=== PATIENT | female | born 1990 | race African-American/Black ===

== ENCOUNTER → 2016-11-04 | Outpatient (CLI) | payer OTHER ==
--- NOTE | 2016-11-04 15:46 | RAD ---
Indication assess size and dates. Obstetrical ultrasound examination was performed. No prior imaging is available. There is a single, viable, IUP. Biparietal diameter of 4.6 cm, head circumference of 17.7 cm, abdominal circumference of 14.7 cm and femoral length of 3.5 cm are compatible with a gestational age of approximately 20 weeks 2 days. By sonographic analysis the expected date of confinement is 03/22/2017. The estimated weight is approximately 350 g. The amount of amniotic fluid appears normal. The placenta is predominantly anterior. A heart rate of 135 was documented. There is a 4 chambered heart. There was a three-vessel cord. The bladder, kidneys visualized spine, head appeared normal. The current presentation is transverse. No definite anomalies were seen. The maternal cervix length of 5.1 cm is unremarkable. IMPRESSION: Single viable intrauterine fetus of approximately 20 weeks 2 days gestation.
== END | disposition home or self-care (01) ==
LOC: US 13:22
PROVIDERS: ATTEND Obstetrics & Gynecology
DX: O26.841 Uterine size-date discrepancy, first trimester (principal)
CPT/HCPCS: 76805

== ENCOUNTER 2017-01-10 13:04 | Observation (INO) | payer OTHER | END 2017-01-10 15:00 | disposition home or self-care (01) | LOC: 3 SO LND 13:04 | PROVIDERS: ADMIT Obstetrics & Gynecology; ATTEND Obstetrics & Gynecology | DX: O62.9 Abnormality of forces of labor, unspecified (principal); Z3A.30 30 weeks gestation of pregnancy | CPT/HCPCS: G0378; G0379 ==

== ENCOUNTER 2017-02-04 15:57 | Observation (INO) | payer OTHER ==
[2017-02-04] MEDS ORDERED: IV RINGERS,LACTATED 1000ML 1,000 ML IV SCH (17:01)
[2017-02-04 17:13] LABS: BILIRUBIN,URINE NEGATIVE (NEG); GLUCOSE,URINE NEGATIVE (NEG); NITRITE,URINE NEGATIVE (NEG); PH,URINE 6.5; PROTEIN,URINE NEGATIVE (NEG-TRACE)
[2017-02-04 17:46] LABS: BACTERIA,URINE FEW /HPF (0-FEW); RBC,URINE 0 /HPF (0-2); SQUAMOUS EPITHELIAL CELL,UR FEW /LPF; WBC,URINE OCC /HPF (0-4)
== END 2017-02-04 18:15 | disposition home or self-care (01) ==
LOC: 3 SO LND 15:57
PROVIDERS: ADMIT Obstetrics & Gynecology; ATTEND Obstetrics & Gynecology
DX: O26.893 Other specified pregnancy related conditions, third trimester (principal); R10.9 Unspecified abdominal pain; R51 Headache; Z3A.33 33 weeks gestation of pregnancy
CPT/HCPCS: 81001; G0378; G0379

== ENCOUNTER 2017-02-22 14:23 | Observation (INO) | payer OTHER ==
[2017-02-22 15:30] LABS: BILIRUBIN,URINE NEGATIVE (NEG); GLUCOSE,URINE NEGATIVE (NEG); NITRITE,URINE NEGATIVE (NEG); PROTEIN,URINE NEGATIVE (NEG-TRACE)
[2017-02-22] MEDS ORDERED: IV RINGERS,LACTATED 1000ML 1,000 ML IV SCH (16:00)
[2017-02-22 16:07] LABS: RBC,URINE 0 /HPF (0-2); WBC,URINE OCC /HPF (0-4)
[2017-02-22 16:08] LABS: BACTERIA,URINE FEW /HPF (0-FEW); SQUAMOUS EPITHELIAL CELL,UR FEW /LPF
[2017-02-22] MEDS ORDERED: BUTALB/APAP/CAFEIN 50/325/40MG TABLET. PO PRN ×2 (16:15→20:15)
[2017-02-22] MEDS ORDERED: diphenhydrAMINE HCL 25 MG CAPSULE PO ONE (22:30)
== END 2017-02-23 09:35 | disposition home or self-care (01) ==
LOC: 3 SO LND 14:23
PROVIDERS: ADMIT Obstetrics & Gynecology; ATTEND Obstetrics & Gynecology
DX: O26.893 Other specified pregnancy related conditions, third trimester (principal); R51 Headache; R10.2 Pelvic and perineal pain; Z3A.36 36 weeks gestation of pregnancy
CPT/HCPCS: 81001; 87086; 96360; 96361; G0378; G0379; Q0163; J7120

== ENCOUNTER 2017-02-25 11:21 | Observation (INO) | payer OTHER ==
[2017-02-25] MEDS ORDERED: IV RINGERS,LACTATED 1000ML 1,000 ML IV SCH (12:01)
[2017-02-25] MEDS ORDERED: ALBUTEROL SULFATE 2.5 MG/3 ML NEBU. NEB ONE (12:15)
[2017-02-25 12:44] LABS: HEMOGLOBIN 12.3 g/dL (12.0-15.5); RED BLOOD COUNT 5.02 x10^6/uL (3.50-5.40); RED CELL DISTRIBUTION WIDTH 15.3 % (11.5-14.5); WHITE BLOOD COUNT 9.4 x10^3/uL (4.0-11.0)
[2017-02-25 12:55] LABS: CALCIUM 9.2 mg/dL (8.5-10.1); CREATININE 0.9 mg/dL (0.6-1.0); GFR 90.2; POTASSIUM 3.6 mmol/L (3.5-5.1)
[2017-02-25 13:01] LABS: ALBUMIN 3.3 g/dL (3.4-5.0); ALBUMIN/GLOBULIN RATIO 0.7 (1.0-1.7); TOTAL BILIRUBIN 0.5 mg/dL (0.2-1.0); TOTAL PROTEIN 7.8 g/dL (6.4-8.2)
[2017-02-25 13:10] LABS: BILIRUBIN,URINE NEGATIVE (NEG); GLUCOSE,URINE NEGATIVE (NEG); NITRITE,URINE NEGATIVE (NEG); PROTEIN,URINE NEGATIVE (NEG-TRACE); UROBILINOGEN,URINE 0.2 mg/dL (0.2 mg/dL)
[2017-02-25 13:39] LABS: BACTERIA,URINE FEW /HPF (0-FEW); RBC,URINE 0 /HPF (0-2); SQUAMOUS EPITHELIAL CELL,UR MOD /LPF
== END 2017-02-25 14:50 | disposition home or self-care (01) ==
LOC: 3 SO LND 11:21
PROVIDERS: ADMIT Obstetrics & Gynecology; ATTEND Obstetrics & Gynecology
DX: O26.893 Other specified pregnancy related conditions, third trimester (principal); Z3A.36 36 weeks gestation of pregnancy
CPT/HCPCS: 36415; 80053; 81001; 82150; 83690; 85027; 87086; 94250; 94640; 94760; G0378; G0379; J7613

== ENCOUNTER 2017-02-28 17:50 | Observation (INO) | payer OTHER ==
[2017-02-28] MEDS ORDERED: BUTALB/APAP/CAFEIN 50/325/40MG TABLET. PO PRN (21:45)
--- NOTE | 2017-02-28 23:10 | RAD ---
Limited OB ultrasound greater than 14 weeks 02/28/2017 CLINICAL HISTORY: Third trimester with premature contractions and pelvic pain. Question spontaneous rupture of membranes. TECHNIQUE: A real-time ultrasound examination of the gravid uterus was performed. Multiple images were obtained. FINDINGS: There is a single living IUP. The fetus is in a cephalic position. cardiac and somatic activity is seen. The heart rate is 127 bpm. The maternal cervix is closed. It measures 4.6 cm in length. The placenta is anterior. The amniotic fluid volume is within normal limits. The THERESA measures 11.6 cm. The following measurements were obtained: BPD 8.97 cm 36 weeks 2 days HC 33.13 cm 37 weeks 5 days AC 33.99 cm 36 weeks 6 days FL 7.33 cm 37 weeks 4 days The estimated gestational age by ultrasound is 37 weeks 3 days plus or minus a standard deviation of 3 weeks. The estimated date of delivery by ultrasound is 03/18/2017. The estimated weight is 3255 g +/- 482 g (7 lbs. 3 oz.) Detailed evaluation of anatomy was not performed. No obvious abnormality is seen. The maternal ovaries are not visualized. No free fluid is seen. IMPRESSION: Single living IUP with estimated gestational age by ultrasound of 37 weeks 3 days plus or minus a standard deviation of 3 weeks. Electronically signed by: Cristopher Mccullough MD (02/28/2017 11:07 PM) [facility]
== END 2017-02-28 23:10 | disposition home or self-care (01) ==
LOC: INTOOBSV 17:50 → 3 SO LND 17:50
PROVIDERS: ADMIT Obstetrics & Gynecology; ATTEND Obstetrics & Gynecology
DX: O62.9 Abnormality of forces of labor, unspecified (principal); O26.893 Other specified pregnancy related conditions, third trimester; R10.2 Pelvic and perineal pain; Z3A.37 37 weeks gestation of pregnancy
CPT/HCPCS: 76815; G0378; G0379

== ENCOUNTER 2017-03-03 16:40 | Observation (INO) | payer OTHER ==
[2017-03-03 16:54] VITALS: BP 121/79
--- NOTE | 2017-03-03 17:16 | PHYS DOC ---
Past Medical History Past Medical History: Asthma Past Surgical History: Cholecystectomy Alcohol Use: None Drug Use: None Adult General Chief Complaint Chief Complaint: CHEST PAIN HPI HPI Patient is a 27 year old female who is 4 para 2, 38 weeks by ultrasound, Dr. Flores is her customer acquisition specialist, presents here today secondary to uterine contractions and chest pain. Patient reports that earlier today she felt to be contractions her abdomen and she reports that she started feeling shaky. She reports shortly thereafter she started having some chest pain. Pain was in the midsternal area. Patient no shortness of breath with it. Patient reports tingling to both hands when this occurred. Patient has any diaphoresis. Patient has a nausea vomiting diarrhea. Patient has a dysuria frequency or urgency. Patient has any fevers shakes chills. Patient has any cough. She reports she has a history of asthma and GERD. Patient has any hypertension diabetes liver lung or kidney problems otherwise. Patient has any history of PEs or complication of the prior pregnancies. Patient reports she is a 4 para 2. Patient reports she had similar symptoms approximately 2 weeks ago when she was up in the [place] she reports that it was attributed to panic attack. Patient reports that she did not feel anxious when the symptoms occurred earlier today though. Patient denies any vaginal bleeding or breaking of water. Patient reports the contractions are intermittent. Patient reports decreased kicking earlier today. Patient's ER physical exam is significant for a gravid abdomen. Patient's heart was regular rate and rhythm. Lungs were clear. No wheezing rales or rhonchi. No calf tenderness. No Homans sign. Patient is nontoxic appearing and in no respiratory distress. Review of systems: Constitutional: Denies fever or chills Eyes: Denies change in visual acuity, redness, or eye pain HENT: Denies nasal congestion or sore throat All other review systems are negative except as documented in the history of present illness portion. Physical exam: Constitutional: Well developed, well nourished, no acute distress, non-toxic appearance. HENT: Normocephalic, atraumatic, bilateral external ears normal, oropharynx moist, no oral exudates, nose normal. Eyes: EOMI, conjunctiva normal, no discharge. Neck: Normal range of motion, no tenderness, supple, no stridor. Cardiovascular:Heart rate regular rhythm Lungs & Thorax: No respiratory distress Abdomen: Bowel sounds normal, soft, gravid, see above, no pulsatile masses. Skin: Warm, dry, no erythema, no rash. Back: No tenderness, no CVA tenderness. Extremities: No tenderness, no cyanosis, no clubbing, ROM intact, no edema. Neurologic: Alert and oriented X 3, normal motor function, normal sensory function, no focal deficits noted. Psychologic: Affect normal, judgement normal, mood normal. EKG: Normal sinus rhythm at a heart rate of 93. Nonspecific ST-T wave abnormalities. No evidence of ST elevation SC. Interpreted by ER physician. Assessment and plan This is a 27-year-old female who is 4 para 2 who presents to the ER today secondary to uterine contractions, decreased activity, and chest pain that occurred earlier today. Patient is clinically hemodynamically stable. Patient's chest pain is atypical for cardiac etiology. I have very low suspicion that the pain is secondary to any acute pathology that warrant any further evaluation the hospital or ER. I do not believe the patient has pulmonary embolism, pneumothorax, myocardial infarction, pneumonia. Patient's clinically hemodynamically stable. Patient be medically cleared from the ED and will be sent to labor and delivery for further monitoring and OB evaluation. Allergies Allergies Allergies Coded Allergies Type Severity Reaction Last Updated Verified shrimp Allergy Intermediate Swelling 02/04/17 Yes Current Patient Data Vital Signs Vital Signs Date Time Temp Pulse Resp B/P (MAP) Pulse Ox O2 Delivery O2 Flow Rate FiO2 03/03/17 16:54 99.0 93 18 121/79 (93) 99 Room Air 99.0 EKG EKG [] Radiology/Procedures Radiology/Procedures [] Course & Med Decision Making Course & Med Decision Making Pertinent Labs and Imaging studies reviewed. (See chart for details) [] Dragon Disclaimer Dragon Disclaimer This electronic medical record was generated, in whole or in part, using a voice recognition dictation system. Departure Departure Impression: Primary Impression: Nonspecific chest pain Additional Impression: Uterine contractions at greater than 20 weeks of gestation Disposition: 05 TRANSFER OTHER (transfer to labor and delivery. Dr. Mtz made aware by CONVERTIBLE SOFA BEDSPRING TESTER) Admitting Physician: Other (Dr. Mtz) Condition: STABLE Referrals: NO PCP (PCP) Problem Qualifiers JINNY MAURO MD Mar 03, 2017 17:16
--- NOTE | 2017-03-04 06:14 | EKG ---
[facility] [address] [place] [address] Test Date: 2017-03-03 Test Time: 16:49:53 Pat Name: TIKA NGO Department: Room: [facility] Gender: F Wan Support Specialist: : 1990 Requested By: CIPRIANO BARRAGAN Order Number: [id number] Reading MD: Jewels Aguilar Measurements Intervals [place] Rate: 93 P: 50 WV: 158 QRS: 44 QRSD: 80 T: 42 QT: 326 QTc: 408 Interpretive Statements SINUS RHYTHM NORMAL EKG Electronically Signed On 03-05-2017 16:09:13 CDT by Jewels Aguilar
== END 2017-03-03 19:23 | disposition home or self-care (01) ==
LOC: ER 16:40 → 3 SO LND 17:14
PROVIDERS: ADMIT Obstetrics & Gynecology; ATTEND Obstetrics & Gynecology
DX: O62.9 Abnormality of forces of labor, unspecified (principal); O26.893 Other specified pregnancy related conditions, third trimester; R07.2 Precordial pain; O21.2 Late vomiting of pregnancy; R19.7 Diarrhea, unspecified; R30.0 Dysuria; R35.0 Frequency of micturition; R39.15 Urgency of urination; O99.513 Diseases of the respiratory system complicating pregnancy, third trimester; J45.909 Unspecified asthma, uncomplicated; O99.613 Diseases of the digestive system complicating pregnancy, third trimester; K21.9 Gastro-esophageal reflux disease without esophagitis; O10.913 Unspecified pre-existing hypertension complicating pregnancy, third trimester; O24.313 Unspecified pre-existing diabetes mellitus in pregnancy, third trimester; E11.9 Type 2 diabetes mellitus without complications; O36.8130 Decreased fetal movements, third trimester, not applicable or unspecified; Z3A.38 38 weeks gestation of pregnancy
CPT/HCPCS: 93005; 99285; G0378; G0379

== ENCOUNTER 2017-03-13 19:18 | Inpatient (IN) | payer OTHER ==
[~2017-03-13] VITALS: Ht 185.4 cm; Wt 91.2 kg
[2017-03-13] MEDS ORDERED: DINOPROSTONE 10 MG SUPP.VAG VG ONE (19:30)
[2017-03-13] MEDS ORDERED: LIDOCAINE 1% PF 30 ML VIAL. INJ PRN (19:30)
[2017-03-13] MEDS ORDERED: CITRIC ACID/SODIUM CITRATE 30 ML SOLUTION. PO PRN (19:30)
[2017-03-13] MEDS ORDERED: 0.9 % SODIUM CHLORIDE 10 ML DISP.SYRIN. IV PRN (19:30)
[2017-03-13] MEDS ORDERED: fentaNYL PF VIAL 100 MCG/2 ML VIAL IV PRN (19:30)
[2017-03-13] MEDS ORDERED: OXYTOCIN 30 UNIT/500 ML PREMIX 500 ML IV PRN ×2 (19:30)
[2017-03-13] MEDS ORDERED: TERBUTALINE 1 MG/ML VIAL. SQ PRN (19:30)
[2017-03-13] MEDS ORDERED: BUTORPHANOL 2 MG/ML VIAL. IV PRN (19:30)
[2017-03-13] MEDS ORDERED: PREN1TAB58 PO (19:47)
[2017-03-13] MEDS ORDERED: RANI150T6 PO (19:57)
[2017-03-13 20:02] LABS: BILIRUBIN,URINE NEGATIVE (NEG); GLUCOSE,URINE NEGATIVE (NEG); NITRITE,URINE NEGATIVE (NEG); PH,URINE 6.5; PROTEIN,URINE NEGATIVE (NEG-TRACE); UROBILINOGEN,URINE 0.2 mg/dL (0.2 mg/dL)
[2017-03-13 20:06] LABS: HEMATOCRIT 32.5 % (36.0-47.0); HEMOGLOBIN 10.9 g/dL (12.0-15.5); RED BLOOD COUNT 4.64 x10^6/uL (3.50-5.40); RED CELL DISTRIBUTION WIDTH 15.2 % (11.5-14.5); WHITE BLOOD COUNT 10.1 x10^3/uL (4.0-11.0)
[2017-03-13] MEDS: IV RINGERS,LACTATED 1000ML 1,000 ML IV SCH (20:07)
[2017-03-13 20:08] LABS: BARBITURATES NEG (NEG); BENZODIAZEPINES NEG (NEG); CANNABINOIDS NEG (NEG); COCAINE NEG (NEG); METHADONE NEG (NEG); OPIATES NEG (NEG); PHENCYCLIDINE NEG (NEG)
[2017-03-13 20:11] LABS: BACTERIA,URINE FEW /HPF (0-FEW); RBC,URINE 0 /HPF (0-2); SQUAMOUS EPITHELIAL CELL,UR FEW /LPF; WBC,URINE OCC /HPF (0-4)
[2017-03-13] MEDS ORDERED: diphenhydrAMINE HCL 25 MG CAPSULE PO PRN (20:15)
[2017-03-14] MEDS ORDERED: OXYTOCIN in NORMAL SALINE PREMIX 30 UNIT/500 ML BAG. IV ONE (03:02)
[2017-03-14] MEDS ORDERED: PENICILLIN G K 5,000,000 UNIT in IV NORMAL SALINE 100ML 100 ML IV ONE (06:00)
[2017-03-14] MEDS ORDERED: L&D EPIDURAL CASSETTE 100 ML PUMP.RESVR. EP ONE (06:00)
[2017-03-14] MEDS: PENICILLIN G K 2,500,000 UNIT in IV NORMAL SALINE 50ML 50 ML IV SCH ×2 (06:05→10:08)
[2017-03-14] MEDS: IV RINGERS,LACTATED 1000ML 1,000 ML IV SCH (06:10)
--- NOTE | 2017-03-14 08:12 | PDOC1 ---
OB - History Hx of Present Care: Good Care Ultrasounds: Normal mid trimester US Obstetrical Complications: None Medical Complications: None Past Family/Social History * Past Medical, Surgical, Family and Obstetric Histories reviewed from chart. Rubella: Immune RPR/VDRL: Negative GBS Status: Negative HBsAG: Negative OB - Chief Complaint & HPI Date of Admission: Date of Admission: Mar 13, 2017 at 19:18 Chief Complaint/History : 3 Para: 2 EGA: 39 Reason for admission: induction of labor Indication for induction: maternal discomfort Admission Nurse Assessment Rev: Yes Problems: OB - Admission Exam Physical Exam Vitals: VS - Last 72 Hours, by Label Date Time Temp Pulse Resp B/P (MAP) Pulse Ox O2 Delivery O2 Flow Rate FiO2 03/14/17 01:16 22 Room Air HEENT: Normal Heart: Regular Rate Lungs: Clear Abdomen: Gravid, Non tender, Soft Extremities: Edema Reflexes: Normal Cervical Dilatation: 2cm Effacement: 50% Station: -3 Membranes: Intact Heart Rate: Normal Accelerations: Accelerations Present Decelerations: No decelerations Contractions on Admission: None Text A: 39 wks IUP IOL secondary discomforts of P: Admit for IOL cervidil, then pitocin in am. CIPRIANO BARRAGAN Jr, MD Mar 14, 2017 08:12
[2017-03-14] MEDS ORDERED: L&D EPIDURAL CASSETTE 100 ML EP ONE (09:07)
[2017-03-14] MEDS ORDERED: LIDOCAINE 2% PF Vial for OR 5 ML VIAL. ONE (09:07)
--- NOTE | 2017-03-14 10:29 | PDOC ---
VAGINAL DELIVERY DATE DATE: 03/14/17 TIME: 10:28 : 4 Para: 3 EGA: 39 VAGINAL DELIVERY: VTX VACCUM ASSISTED: No PLACENTA: Spontaneous 03/26 SEX: Female WEIGHT Weight [ 3485 gm] Nuchal Cord: No Amniotic Fluid: Clear PAIN: Epidural EPISIOTOMY: No EXTENSION: No EBL 300 ml COMPLICATIONS none CONDITION pt. stable Signs of Intrauterine Infectio: None Shoulder Dystocia: No Problems: CIPRIANO BARRAGAN Jr, MD Mar 14, 2017 10:29
[2017-03-14] MEDS ORDERED: 0.9 % SODIUM CHLORIDE 10 ML DISP.SYRIN. IV PRN (10:30)
[2017-03-14] MEDS ORDERED: PHENYLEPH/MINERAL OIL/PETROLAT RECTAL OINTMENT 28GM TUBE. RC PRN (10:30)
[2017-03-14] MEDS ORDERED: OXYTOCIN 30 UNIT/500 ML PREMIX 500 ML IV PRN (10:30)
[2017-03-14] MEDS ORDERED: BENZOCAINE 20% TOPICAL AEROSOL SPRAY 57GM CAN. TP PRN (10:30)
[2017-03-14] MEDS ORDERED: ZOLPIDEM 5 MG TABLET. PO PRN (10:30)
[2017-03-14] MEDS ORDERED: HYDROCORTISONE 1% TOPICAL OINTMENT 30GM TUBE. TP PRN (10:30)
[2017-03-14] MEDS ORDERED: MAG HYDROX/ALUMINUM HYD/SIMETH 30 ML ORAL.SUSP PO PRN (10:30)
[2017-03-14] MEDS ORDERED: IBUPROFEN 800 MG TABLET. PO PRN (10:30)
[2017-03-14] MEDS ORDERED: MAGNESIUM HYDROXIDE 2,400 MG/30 ML ORAL.SUSP. PO PRN (10:30)
[2017-03-14] MEDS ORDERED: ACETAMINOPHEN 325 MG TABLET. PO PRN (10:30)
[2017-03-14] MEDS ORDERED: diphenhydrAMINE HCL 25 MG CAPSULE PO PRN (10:30)
[2017-03-14] MEDS ORDERED: SIMETHICONE 80 MG TAB.CHEW PO PRN (10:30)
[2017-03-14] MEDS ORDERED: DOCUSATE SODIUM 100 MG CAPSULE. PO PRN (10:30)
[2017-03-14] MEDS ORDERED: MMR per PROTOCOL. MC PRN (10:30)
[2017-03-14] MEDS: IBUPROFEN 800 MG TABLET. PO PRN ×2 (12:13→20:22)
[2017-03-14 12:45] VITALS: BP 126/76
[2017-03-14 13:15] VITALS: BP 120/84
[2017-03-14 14:15] VITALS: BP 114/79
[2017-03-14] MEDS: oxyCODONE/APAP 5/325 1 TAB TABLET PO PRN ×3 (15:16→20:22)
[2017-03-14 18:05] VITALS: BP 117/74
[2017-03-14 23:13] VITALS: BP 118/75
[2017-03-15 04:57] VITALS: BP 105/61
[2017-03-15 08:17] LABS: RPR REFLEX Non Reactive (Non Reactive)
--- NOTE | 2017-03-15 08:24 | PDOC ---
OB Progress Note Date of Service 03/15/17 Time of Evaluation 0820 Notes Pt. feeling well. Pain controlled. Lochia minimal. Bottle feeding. Lab Laboratory Tests Test 03/13/17 19:00 03/13/17 19:50 Urine Collection Type Unknown Urine Color Yellow Urine Clarity Clear Urine pH 6.5 Urine Specific [place] <=1.005 Urine Protein Negative mg/dL (NEG-TRACE) Urine Glucose (UA) Negative mg/dL (NEG) Urine Ketones (Stick) Negative mg/dL (NEG) Urine Blood Negative (NEG) Urine Nitrite Negative (NEG) Urine Bilirubin Negative (NEG) Urine Urobilinogen Dipstick 0.2 mg/dL (0.2 mg/dL) Urine Leukocyte Esterase Negative (NEG) Urine RBC 0 /HPF (0-2) Urine WBC Occ /HPF (0-4) Urine Squamous Epithelial Cells Few /LPF Urine Bacteria Few /HPF (0-FEW) Urine Opiates Screen Neg (NEG) Urine Methadone Screen Neg (NEG) Urine Barbiturates Neg (NEG) Urine Phencyclidine Screen Neg (NEG) Urine Amphetamine/Methamphetamine Neg (NEG) Urine Benzodiazepines Screen Neg (NEG) Urine Cocaine Screen Neg (NEG) Urine Cannabinoids Screen Neg (NEG) Urine Ethyl Alcohol Neg (NEG) White Blood Count 10.1 x10^3/uL (4.0-11.0) Red Blood Count 4.64 x10^6/uL (3.50-5.40) Hemoglobin 10.9 g/dL (12.0-15.5) Hematocrit 32.5 % (36.0-47.0) Mean Corpuscular Volume 70 fL (79-100) Mean Corpuscular Hemoglobin 24 pg (25-35) Mean Corpuscular Hemoglobin Concent 34 g/dL (31-37) Red Cell Distribution Width 15.2 % (11.5-14.5) Platelet Count 195 x10^3/uL (140-400) RPR Titer Additional Testing Non reactive (Non Reactive) Medications Current Medications Sodium Chloride (Normal Saline Flush) 3 ml QSHIFT PRN IV AFTER MEDS AND BLOOD DRAWS; Start 03/13/17 at 19:30 Ringer's Solution 1,000 ml @ 125 mls/hr Q8H IV Last administered on 03/14/17t 06:10; Start 03/13/17 at 19:22; Stop 03/14/17 at 13:50; Status DC Butorphanol Tartrate (Stadol) 2 mg PRN Q1HR PRN IV Severe labor pain Last administered on 03/14/17 01:16; Start 03/13/17 at 19:30; Stop 03/14/17 at 13:50 ; Status DC Fentanyl Citrate (Fentanyl 2ml Vial) 100 mcg PRN Q30MIN PRN IV Severe pain; Start 03/13/17 at 19:30 Citric Acid/ Sodium Citrate (Bicitra) 30 ml 1X PRN PRN PO DYSPEPSIA Last administered on 03/13/17 20:48; Start 03/13/17 at 19:30; Stop 03/14/17 at 13:50 ; Status DC Terbutaline Sulfate (Brethine) 0.25 mg 1X PRN PRN SQ SEE COMMENTS; Start at 19:30; Stop 03/14/17 at 19:29; Status DC Lidocaine HCl 30 ml 1X PRN PRN INJ SEE COMMENTS; Start 03/13/17 at 19:30; Stop 03/15/17 at 19:29 Oxytocin/Sodium Chloride 500 ml @ 0 mls/hr CONT PRN IV SEE I/O RECORD Last administered on 03/14/17 06:06; Start 03/13/17 at 19:30; Stop 03/14/17 at 13:50 ; Status DC Oxytocin/Sodium Chloride 500 ml @ 0 mls/hr CONT PRN PRN IV Post delivery bleeding; Start 03/13/17 at 19:30; Stop 03/14/17 at 13:50; Status DC Ibuprofen (Motrin) 800 mg PRN Q6HRS PRN PO PAIN Last administered on 03/14/17 20:22; Start 03/13/17 at 19:30 Dinoprostone (Cervidil) 10 mg 1X ONCE VG Last administered on 03/13/17 19:30 ; Start 03/13/17 at 19:30; Stop 03/14/17 at 13:50; Status DC Penicillin G Potassium [id number] unit/Sodium Chloride 100 ml @ 100 mls/hr 1X ONCE IV Last administered on 03/14/17 01:15; Start 03/14/17 at 06:00; Stop at 13:50; Status DC Penicillin G Potassium [id number] unit/Sodium Chloride 50 ml @ 100 mls/hr Q4H IV Last administered on 03/14/17t 10:08; Start 03/14/17 at 06:00; Stop 03/14/17 at 13:50; Status DC Diphenhydramine HCl (Benadryl) 50 mg PRN QHS PRN PO INSOMNIA Last administered on 03/13/17 21:21; Start 03/13/17 at 20:15 Lidocaine HCl (Lidocaine Pf 2% Vial) 5 ml STK-MED ONCE .ROUTE ; Start 03/14/17 at 09:07; Stop 03/14/17 at 09:08; Status DC Ropivacaine/ Fentanyl/NS 100 ml @ As Directed STK-MED ONCE EP ; Start 03/14/17 at 09:07; Stop 03/14/17 at 13:50; Status DC Sodium Chloride (Normal Saline Flush) 10 ml QSHIFT PRN IV AFTER MEDS AND BLOOD DRAWS; Start 03/14/17 at 10:30; Stop 03/14/17 at 13:50; Status DC Oxytocin/Sodium Chloride 500 ml @ 62.5 mls/hr CONT PRN IV SEE I/O RECORD; Start 03/14/17 at 10:30; Stop 03/14/17 at 18:29; Status DC Acetaminophen (Tylenol) 650 mg PRN Q6HRS PRN PO MILD PAIN / TEMP; Start at 10:30 Ibuprofen (Motrin) 800 mg PRN Q8HRS PRN PO INFLAMMATION/PAIN PREVENTION; Start 03/14/17 at 10:30 Docusate Sodium (Colace) 100 mg PRN BID PRN PO CONSTIPATION; Start 03/14/17 at 10:30 Magnesium Hydroxide (Milk Of Magnesia) 2,400 mg PRN DAILY PRN PO CONSTIPATION; Start 03/14/17 at 10:30 Al Hydroxide/Mg Hydroxide (Mylanta Plus Xs) 30 ml PRN Q4HRS PRN PO HEARTBURN / GAS; Start 03/14/17 at 10:30 Simethicone (Gas-X) 80 mg PRN AFTMEALHC PRN PO GAS / BLOATING; Start 03/14/17 at 10:30 Diphenhydramine HCl (Benadryl) 25 mg PRN Q6HRS PRN PO ITCHING; Start 03/14/17 at 10:30 Benzocaine (Americaine) 1 spray PRN QID PRN TP TOPICAL PAIN Last administered on 03/14/17 13:17; Start 03/14/17 at 10:30 Phenyleph/Shark Oil/Min Oil/Petrol (Preparation H) 1 karmen PRN QID PRN RC RECTAL PAIN; Start 03/14/17 at 10:30 Hydrocortisone (Cortaid) 1 karmen PRN QID PRN TP PERINEAL PAIN; Start 03/14/17 at 10:30 Ferrous Sulfate (Feosol) 325 mg BIDWMEALS PO ; Start 03/15/17 at 08:00 Zolpidem Tartrate (Ambien) 5 mg PRN QHS PRN PO INSOMNIA, MAY REPEAT X1; Start 03/14/17 at 10:30 Info (Do NOT chart on this placeholder) 1 ea 1X PRN PRN MC SEE COMMENTS; Start 03/14/17 at 10:30 Info (Do NOT chart on this placeholder) 1 ea 1X PRN PRN MC SEE COMMENTS; Start 03/14/17 at 10:30 Oxycodone/ Acetaminophen (Percocet 5/325) 2 tab PRN Q4HRS PRN PO MODERATE PAIN , SEVERE PAIN Last administered on 03/14/17 20:22; Start 03/14/17 at 10:30 Oxytocin/Sodium Chloride (Oxytocin Premix Infusion) 30 unit STK-MED ONCE IV ; Start 03/14/17 at 03:02; Stop 03/14/17 at 15:37; Status DC Active Scripts Active Reported Zantac (Ranitidine Hcl) 150 Mg Tablet 1 Tab PO BID Vitamins ( Vits W-Ca,Fe,Fa(<1MG)) 1 Each Tablet 1 Tab PO DAILY Exam Abd: soft, non tender, fundus firm Assessment PPD#1 s/p Plan of Care: Continue current Tx, Mgmt CIPRIANO BARRAGAN Jr, MD Mar 15, 2017 08:24
[2017-03-15 09:02] LABS: HEMOGLOBIN 9.7 g/dL (12.0-15.5); RED BLOOD COUNT 4.14 x10^6/uL (3.50-5.40); WHITE BLOOD COUNT 11.2 x10^3/uL (4.0-11.0)
[2017-03-15 09:03] LABS: BASO # 0.1 x10^3/uL (0.0-0.2); BASO % 1 % (0-3); EOS % 1 % (0-3); HEMATOCRIT 29.4 % (36.0-47.0); LYMPH # 2.5 x10^3/uL (1.0-4.8); LYMPH % 23 % (24-48); MEAN CORPUSCULAR HEMOGLOBIN 23 pg (25-35); MEAN CORPUSCULAR HGB CONC 33 g/dL (31-37); MEAN CORPUSCULAR VOLUME 71 fL (79-100); MONO % 7 % (0-9); NEUT % 69 % (31-73); PLATELET COUNT 162 x10^3/uL (140-400); RED CELL DISTRIBUTION WIDTH 15.9 % (11.5-14.5)
[2017-03-15 10:05] VITALS: BP 110/78
[2017-03-15] MEDS: FERROUS SULFATE 325 MG TABLET. PO SCH ×2 (12:02→17:38)
[2017-03-15] MEDS: oxyCODONE/APAP 5/325 1 TAB TABLET PO PRN ×3 (13:08→23:23)
[2017-03-15 13:11] VITALS: BP 112/76
[2017-03-15] MEDS: IBUPROFEN 800 MG TABLET. PO PRN (17:38)
[2017-03-15 17:40] VITALS: BP 120/81
[2017-03-15 23:03] VITALS: BP 124/75
[2017-03-16] MEDS: IBUPROFEN 800 MG TABLET. PO PRN ×2 (03:18→08:57)
[2017-03-16 05:54] VITALS: BP 100/57
[2017-03-16] MEDS: FERROUS SULFATE 325 MG TABLET. PO SCH (08:00)
--- NOTE | 2017-03-16 08:22 | DISCH ---
DISCHARGE INSTRUCTIONS Condition on Discharge Condition on Discharge: Stable Activity After Discharge Activity Instructions for Disc: Activity as tolerated Lifting Instructions after Dis: No heavy lifting Driving Instructions after Dis: Do not drive today Diet after Discharge Diet after Discharge: Regular Contacting the DRLaurie after DC Call your doctor for: Concerns you may have Follow-Up Follow up with: Dr. Mtz in 6 weeks. CIPRIANO MTZ Jr, MD Mar 16, 2017 08:22
--- NOTE | 2017-03-16 08:22 | PDOC ---
OB Progress Note Date of Service 03/16/17 Time of Evaluation 0820 Notes Pt. feeling well. No complaints. Lab Laboratory Tests Test 03/15/17 04:35 White Blood Count 11.2 x10^3/uL (4.0-11.0) Red Blood Count 4.14 x10^6/uL (3.50-5.40) Hemoglobin 9.7 g/dL (12.0-15.5) Hematocrit 29.4 % (36.0-47.0) Mean Corpuscular Volume 71 fL (79-100) Mean Corpuscular Hemoglobin 23 pg (25-35) Mean Corpuscular Hemoglobin Concent 33 g/dL (31-37) Red Cell Distribution Width 15.9 % (11.5-14.5) Platelet Count 162 x10^3/uL (140-400) Neutrophils (%) (Auto) 69 % (31-73) Lymphocytes (%) (Auto) 23 % (24-48) Monocytes (%) (Auto) 7 % (0-9) Eosinophils (%) (Auto) 1 % (0-3) Basophils (%) (Auto) 1 % (0-3) Neutrophils # (Auto) 7.7 x10^3uL (1.8-7.7) Lymphocytes # (Auto) 2.5 x10^3/uL (1.0-4.8) Monocytes # (Auto) 0.8 x10^3/uL (0.0-1.1) Eosinophils # (Auto) 0.1 x10^3/uL (0.0-0.7) Basophils # (Auto) 0.1 x10^3/uL (0.0-0.2) Medications Current Medications Sodium Chloride (Normal Saline Flush) 3 ml QSHIFT PRN IV AFTER MEDS AND BLOOD DRAWS; Start 03/13/17 at 19:30 Ringer's Solution 1,000 ml @ 125 mls/hr Q8H IV Last administered on 03/14/17 06:10; Start 03/13/17 at 19:22; Stop 03/14/17 at 13:50; Status DC Butorphanol Tartrate (Stadol) 2 mg PRN Q1HR PRN IV Severe labor pain Last administered on 03/14/17 01:16; Start 03/13/17 at 19:30; Stop 03/14/17 at 13:50 ; Status DC Fentanyl Citrate (Fentanyl 2ml Vial) 100 mcg PRN Q30MIN PRN IV Severe pain; Start 03/13/17 at 19:30 Citric Acid/ Sodium Citrate (Bicitra) 30 ml 1X PRN PRN PO DYSPEPSIA Last administered on 03/13/17 20:48; Start 03/13/17 at 19:30; Stop 03/14/17 at 13:50 ; Status DC Terbutaline Sulfate (Brethine) 0.25 mg 1X PRN PRN SQ SEE COMMENTS; Start at 19:30; Stop 03/14/17 at 19:29; Status DC Lidocaine HCl 30 ml 1X PRN PRN INJ SEE COMMENTS; Start 03/13/17 at 19:30; Stop 03/15/17 at 19:29; Status DC Oxytocin/Sodium Chloride 500 ml @ 0 mls/hr CONT PRN IV SEE I/O RECORD Last administered on 03/14/17 06:06; Start 03/13/17 at 19:30; Stop 03/14/17 at 13:50 ; Status DC Oxytocin/Sodium Chloride 500 ml @ 0 mls/hr CONT PRN PRN IV Post delivery bleeding; Start 03/13/17 at 19:30; Stop 03/14/17 at 13:50; Status DC Ibuprofen (Motrin) 800 mg PRN Q6HRS PRN PO PAIN Last administered on 03/16/17 03:18; Start 03/13/17 at 19:30 Dinoprostone (Cervidil) 10 mg 1X ONCE VG Last administered on 03/13/17 19:30 ; Start 03/13/17 at 19:30; Stop 03/14/17 at 13:50; Status DC Penicillin G Potassium [id number] unit/Sodium Chloride 100 ml @ 100 mls/hr 1X ONCE IV Last administered on 03/14/17 01:15; Start 03/14/17 at 06:00; Stop at 13:50; Status DC Penicillin G Potassium [id number] unit/Sodium Chloride 50 ml @ 100 mls/hr Q4H IV Last administered on 03/14/17 10:08; Start 03/14/17 at 06:00; Stop 03/14/17 at 13:50; Status DC Diphenhydramine HCl (Benadryl) 50 mg PRN QHS PRN PO INSOMNIA Last administered on 03/13/17 21:21; Start 03/13/17 at 20:15 Lidocaine HCl (Lidocaine Pf 2% Vial) 5 ml STK-MED ONCE .ROUTE ; Start 03/14/17 at 09:07; Stop 03/14/17 at 09:08; Status DC Ropivacaine/ Fentanyl/NS 100 ml @ As Directed STK-MED ONCE EP ; Start 03/14/17 at 09:07; Stop 03/14/17 at 13:50; Status DC Sodium Chloride (Normal Saline Flush) 10 ml QSHIFT PRN IV AFTER MEDS AND BLOOD DRAWS; Start 03/14/17 at 10:30; Stop 03/14/17 at 13:50; Status DC Oxytocin/Sodium Chloride 500 ml @ 62.5 mls/hr CONT PRN IV SEE I/O RECORD; Start 03/14/17 at 10:30; Stop 03/14/17 at 18:29; Status DC Acetaminophen (Tylenol) 650 mg PRN Q6HRS PRN PO MILD PAIN / TEMP; Start at 10:30 Ibuprofen (Motrin) 800 mg PRN Q8HRS PRN PO INFLAMMATION/PAIN PREVENTION; Start 03/14/17 at 10:30 Docusate Sodium (Colace) 100 mg PRN BID PRN PO CONSTIPATION Last administered on 03/16/17 07:44; Start 03/14/17 at 10:30 Magnesium Hydroxide (Milk Of Magnesia) 2,400 mg PRN DAILY PRN PO CONSTIPATION; Start 03/14/17 at 10:30 Al Hydroxide/Mg Hydroxide (Mylanta Plus Xs) 30 ml PRN Q4HRS PRN PO HEARTBURN / GAS; Start 03/14/17 at 10:30 Simethicone (Gas-X) 80 mg PRN AFTMEALHC PRN PO GAS / BLOATING; Start 03/14/17 at 10:30 Diphenhydramine HCl (Benadryl) 25 mg PRN Q6HRS PRN PO ITCHING; Start 03/14/17 at 10:30 Benzocaine (Americaine) 1 spray PRN QID PRN TP TOPICAL PAIN Last administered on 03/14/17 13:17; Start 03/14/17 at 10:30 Phenyleph/Shark Oil/Min Oil/Petrol (Preparation H) 1 karmen PRN QID PRN RC RECTAL PAIN; Start 03/14/17 at 10:30 Hydrocortisone (Cortaid) 1 karmen PRN QID PRN TP PERINEAL PAIN; Start 03/14/17 at 10:30 Ferrous Sulfate (Feosol) 325 mg BIDWMEALS PO Last administered on 03/15/17 17: 38; Start 03/15/17 at 08:00 Zolpidem Tartrate (Ambien) 5 mg PRN QHS PRN PO INSOMNIA, MAY REPEAT X1; Start 03/14/17 at 10:30 Info (Do NOT chart on this placeholder) 1 ea 1X PRN PRN MC SEE COMMENTS; Start 03/14/17 at 10:30 Info (Do NOT chart on this placeholder) 1 ea 1X PRN PRN MC SEE COMMENTS; Start 03/14/17 at 10:30 Oxycodone/ Acetaminophen (Percocet 5/325) 2 tab PRN Q4HRS PRN PO MODERATE PAIN , SEVERE PAIN Last administered on 03/15/17 23:23; Start 03/14/17 at 10:30 Oxytocin/Sodium Chloride (Oxytocin Premix Infusion) 30 unit STK-MED ONCE IV ; Start 03/14/17 at 03:02; Stop 03/14/17 at 15:37; Status DC Ropivacaine/ Fentanyl/NS (Fedpjlla-Fhywy-AA 3 Mcg-0.1%) 100 ml STK-MED ONCE EP ; Start 03/14/17 at 06:00; Stop 03/15/17 at 14:45; Status DC Active Scripts Active Reported Zantac (Ranitidine Hcl) 150 Mg Tablet 1 Tab PO BID Vitamins ( Vits W-Ca,Fe,Fa(<1MG)) 1 Each Tablet 1 Tab PO DAILY Exam Abd: soft, non tender, fundus firm Assessment PPD#2 s/p Plan of Care: See new orders (D/c home.) CIPRIANO BARRAGAN Jr, MD Mar 16, 2017 08:22
[2017-03-16] MEDS ORDERED: IBUP-1060 PO (08:23)
[2017-03-16] MEDS ORDERED: OXYC-323 PO (08:23)
[2017-03-16 10:43] VITALS: BP 106/75
[2017-03-16] MEDS: oxyCODONE/APAP 5/325 1 TAB TABLET PO PRN (10:57)
== END 2017-03-16 12:10 | disposition home or self-care (01) | DRG 775 ==
LOC: 3 SO LND 19:18 → 3 NORTH 03-14 13:00
PROVIDERS: ADMIT Obstetrics & Gynecology; ATTEND Obstetrics & Gynecology
PROC: 10E0XZZ Delivery of Products of Conception, External Approach (ICD-10-PCS; principal; 2017-03-14)
PROC: 3E0R3CZ (ICD-10-PCS; 2017-03-14)
PROC: 3E0R33Z Introduction of Anti-inflammatory into Spinal Canal, Percutaneous Approach (ICD-10-PCS; 2017-03-14)
PROC: 3E0P7GC Introduction of Other Therapeutic Substance into Female Reproductive, Via Natural or Artificial Opening (ICD-10-PCS; 2017-03-14)
DX: O26.893 Other specified pregnancy related conditions, third trimester (principal); Z91.013 Allergy to seafood; Z37.0 Single live birth; Z3A.39 39 weeks gestation of pregnancy
CPT/HCPCS: 36415; 80307; 81001; 85025; 85027; 86593; 86850; 86900; 86901; J2540; J2590; J7120; Q0163; G0479